=== PATIENT | female | born 1960 | race Caucasian/White ===

== ENCOUNTER 2020-02-06 12:49 | Emergency (ER) | payer MEDICAID, OTHER ==
[~2020-02-06] VITALS: Ht 154.9 cm; Wt 77.0 kg
[~2020-02-06 12:49] MED LIST: 5-HY100C PO; DHEA25 PO; HYDR-3965 PO; SIMV-42 PO; VAL5T PO
[2020-02-06 12:50] VITALS: BP 166/141
[2020-02-06] MEDS ORDERED: HYDROcodone/acetaminophen 5mg/325mg tablet PO ONE (16:05)
--- NOTE | 2020-02-06 16:12 | NUR ---
Pt refused norco due to need to drive home upon d/c. I offered pt the potential for a non-narcotic alternative for which she refused.
== END 2020-02-06 16:21 | disposition home or self-care (01) ==
LOC: ER 12:50
DX: G89.29 Other chronic pain (principal); M25.561 Pain in right knee; M19.90 Unspecified osteoarthritis, unspecified site; F41.9 Anxiety disorder, unspecified; F32.9 Major depressive disorder, single episode, unspecified; Z86.69 Personal history of other diseases of the nervous system and sense organs; Z79.899 Other long term (current) drug therapy
CPT/HCPCS: 73564; 99283